=== PATIENT | male | born 1980 ===

== ENCOUNTER 2017-07-13 12:17 | Emergency (ER) | payer OTHER ==
[2017-07-13 13:02] VITALS: RESP 16
--- NOTE | 2017-07-13 14:22 | ED PDOC ---
HPI: CCC, URI, Sore Throat Time Seen by Provider: 07/13/17 13:11 Chief Complaint (Nursing): Flu-like Symptoms Chief Complaint (Provider): Body pain, fever, approx 48 hours History Per: Patient History/Exam Limitations: no limitations Have you had recent travel within the past 21 days to any of the following countries: [place], [place], [place] or [place]?: No Onset/Duration Of Symptoms: Days Current Symptoms Are (Timing): Still Present Location Of Pain: Diffuse Myalgias, Headache Sick Contacts (Context): None Associated Symptoms: Fever, Chills, Myalgias. denies: Sore Throat, Cough, Nasal Congestion, Vomiting, Diarrhea Ear Symptoms: Bilateral: None Past Medical History Reviewed: Historical Data, Nursing Documentation, Vital Signs Vital Signs: Last Vital Signs Temp 100.6 F H 07/13/17 12:58 Pulse 127 H 07/13/17 12:58 Resp 16 07/13/17 12:58 BP 130/86 07/13/17 12:58 Pulse Ox 100 07/13/17 12:58 - Medical History PMH: No Chronic Diseases - Surgical History Surgical History: No Surg Hx - Family History Family History: States: No Known Family Hx - Living Arrangements Living Arrangements: With Family - Social History Current smoker - smoking cessation education provided: No - Home Medications Home Medications: Ambulatory Orders Medication Instructions Recorded Oseltamivir [Tamiflu] 75 mg PO BID #10 cap 07/13/17 - Allergies Allergies/Adverse Reactions: Allergies Allergy/AdvReac Type Severity Reaction Status Date / Time No Known Allergies Allergy Verified 07/13/17 12:58 Review of Systems ROS Statement: Except As Marked, All Systems Reviewed And Found Negative Constitutional: Positive for: Fever, Chills, Malaise Respiratory: Negative for: Cough, Shortness of Breath - ECG O2 Sat by Pulse Oximetry: 100 Disposition - Clinical Impression Clinical Impression: Influenza - Disposition Condition: STABLE Prescriptions: Oseltamivir [Tamiflu] 75 mg PO BID #10 cap Instructions: Flu, Adult (DC) Forms: [employer] (Romanian), [facility] ED School/Work Excuse
--- NOTE | 2017-07-13 14:28 | ED PDOC ---
HPI: CCC, URI, Sore Throat Time Seen by Provider: 07/13/17 13:11 Chief Complaint (Nursing): Flu-like Symptoms Chief Complaint (Provider): Flu like symptoms History Per: Patient History/Exam Limitations: no limitations Have you had recent travel within the past 21 days to any of the following countries: [place], [place], [place] or [place]?: No Onset/Duration Of Symptoms: Days (3) Current Symptoms Are (Timing): Still Present Location Of Pain: Diffuse Myalgias, Headache Associated Symptoms: Fever, Cough Additional History Per: Patient Additional Complaint(s): 36yo male with no past medical history, presents to ER with complaints of headache, fever and bodyaches for the past 3 days. he denies any cough or congestion. Patient has been taking Dayquil and Nyquil with no relief of symptoms. He has no other complaints. Past Medical History Reviewed: Historical Data, Nursing Documentation, Vital Signs Vital Signs: Last Vital Signs Temp 100.6 F H 07/13/17 12:58 Pulse 127 H 07/13/17 12:58 Resp 16 07/13/17 12:58 BP 130/86 07/13/17 12:58 Pulse Ox 100 07/13/17 14:35 - Medical History PMH: No Chronic Diseases - Surgical History Surgical History: No Surg Hx - Family History Family History: States: No Known Family Hx - Home Medications Home Medications: Ambulatory Orders Medication Instructions Recorded Oseltamivir [Tamiflu] 75 mg PO BID #10 cap 07/13/17 - Allergies Allergies/Adverse Reactions: Allergies Allergy/AdvReac Type Severity Reaction Status Date / Time No Known Allergies Allergy Verified 07/13/17 12:58 Review of Systems ROS Statement: Except As Marked, All Systems Reviewed And Found Negative Constitutional: Positive for: Fever, Malaise Respiratory: Negative for: Cough, Shortness of Breath Neurological: Positive for: Headache Physical Exam - Reviewed Nursing Documentation Reviewed: Yes Vital Signs Reviewed: Yes - Physical Exam Appears: Positive for: Non-toxic Head Exam: Positive for: ATRAUMATIC, NORMAL INSPECTION, NORMOCEPHALIC Skin: Positive for: Normal Color, Warm Eye Exam: Positive for: Normal appearance Neck: Positive for: Supple Cardiovascular/Chest: Positive for: Regular Rate, Rhythm Respiratory: Positive for: Normal Breath Sounds. Negative for: Wheezing, Respiratory Distress Neurologic/Psych: Positive for: Alert, Oriented. Negative for: Motor/Sensory Deficits - ECG O2 Sat by Pulse Oximetry: 100 (RA) Pulse Ox Interpretation: Normal Medical Decision Making Medical Decision Making: Impression: Influenza Like Illness Plan: -- Tylneol 975mg PO Patient informed to take Motrin and Tylenol alternately every 6 hours, to keep well hydrated. Patient stable for discharge home. Scribe Attestation: Documented by Kenyatta Deleon acting as a scribe for JESSICA Hill Provider Attestation: All medical record entries made by the Scribe were at my direction and personally dictated by me. I have reviewed the chart and agree that the record accurately reflects my personal performance of the history, physical exam, medical decision making, and the department course for this patient. I have also personally directed, reviewed, and agree with the discharge instructions and disposition. Disposition - Clinical Impression Clinical Impression: Influenza - Disposition Disposition: Routine/Home Disposition Time: 14:36 Condition: STABLE Prescriptions: Oseltamivir [Tamiflu] 75 mg PO BID #10 cap Instructions: Flu, Adult (DC) Forms: [employer] [employer] (Urdu), [facility] ED School/Work Excuse
[2017-07-13 14:43] VITALS: BP 119/81; PULSE 98; TEMP 99.3; O2SAT 99
== END 2017-07-13 14:42 | disposition home or self-care (01) ==
LOC: H.ER 12:17
DX: J11.1 Influenza due to unidentified influenza virus with other respiratory manifestations (principal)